=== PATIENT | female | born 1985 | race Two or more races ===

== ENCOUNTER 2024-08-06 07:40 | Inpatient (IN) | payer OTHER ==
[2024-08-06 08:26] LABS: BASO % 0.2 % (0-2.0); EOS % 0.6 % (0-4.5); HEMATOCRIT 37.4 % (32.4-45.2); HEMOGLOBIN 12.9 GM/dL (10.7-15.3); LYMPH % 24.5 % (8-40); MCH 31.5 pg (25.7-33.7); MCHC 34.6 g/dl (32.0-36.0); MEAN PLT VOLUME 8.5 fl (7.5-11.1); MONO % 7.3 % (3.8-10.2); NEUT % 67.4 % (42.8-82.8); PLATELET COUNT 189 10^3/uL (134-434); RBC 4.11 M/mm3 (3.60-5.2); RDW 13.6 % (11.6-15.6); URINE APPEARANCE CLEAR; URINE BILIRUBIN NEGATIVE (NEGATIVE); URINE COLOR YELLOW; URINE GLUCOSE (UA) NEGATIVE (NEGATIVE); URINE KETONE NEGATIVE (NEGATIVE); URINE LEUK ESTERASE NEGATIVE (NEGATIVE); URINE NITRITE NEGATIVE (NEGATIVE); URINE PROTEIN NEGATIVE (NEGATIVE); URINE UROBILINOGEN 0.2 mg/dL (0.2-1.0); WHITE BLOOD COUNT 7.3 K/mm3 (4.0-10.0)
[2024-08-06] MEDS: ELECTROLYTE-148 SOLN 500 ML IV SCH ×2 (08:45→09:15)
[2024-08-06] MEDS ORDERED: morphine SULFATE/PF 1 MG/2 ML (2cc Syringe - QUVA) ONE (08:46)
[2024-08-06] MEDS ORDERED: ceFAZolin SODIUM 1 GM VIAL ONE (08:46)
[2024-08-06] MEDS ORDERED: ONDANSETRON 4 MG/2 ML VIAL ONE ×2 (08:46→12:33)
[2024-08-06 08:51] LABS: CHLORIDE 106 mmol/L (98-107); POTASSIUM 4.2 mmol/L (3.5-5.1); SODIUM 136 mmol/L (136-145)
[2024-08-06 08:55] LABS: ALBUMIN 2.8 g/dl (3.4-5.0); ANION GAP 7 mmol/L (4-13); CALCIUM 9.4 mg/dL (8.5-10.1); CO2 23 mmol/L (21-32)
[2024-08-06 08:56] LABS: BLOOD UREA NITROGEN 16.4 mg/dL (7-18); GLUCOSE,RANDOM 90 mg/dL (74-106)
[2024-08-06 08:58] LABS: SGPT/ALT 62 U/L (13-61)
[2024-08-06 08:59] LABS: CREATININE 0.7 mg/dL (0.55-1.3); SGOT/AST 32 U/L (15-37)
[2024-08-06 09:00] LABS: BILIRUBIN,TOTAL 0.5 mg/dL (0.2-1); TOT PROT 6.8 g/dl (6.4-8.2)
[2024-08-06] MEDS: CITRIC ACID/SODIUM CITRATE 30 ML UNIT-DOSE CUP PO ONE (09:00)
[2024-08-06 09:01] LABS: ALK PHOS 187 U/L (45-117)
[2024-08-06 09:22] VITALS: BMI 28.4
[2024-08-06] MEDS ORDERED: LIGASURE IMPACT TP ONE (10:32)
[2024-08-06] MEDS ORDERED: OXYTOCIN 10 UNITS/ML VIAL ONE ×2 (11:35→11:38)
[2024-08-06] MEDS ORDERED: METHYLERGONOVINE MALEATE 0.2 MG/1 ML AMP IM PRN (14:07)
[2024-08-06] MEDS: OXYTOCIN 20 UNITS in 0.9% NS 20 UNIT/1,000 ML INFUS.BAG IV SCH (14:25)
[2024-08-06] MEDS: IBUPROFEN 600 MG TABLET (FP) PO PRN (20:15)
[2024-08-06] MEDS: SIMETHICONE 80 MG TAB.CHEW (FP) PO PRN (20:15)
[2024-08-07] MEDS ORDERED: oxyCODONE HCL 5 MG TABLET PO PRN ×2 (02:09)
[2024-08-07 06:57] LABS: BASO % 0.2 % (0-2.0); EOS % 0.4 % (0-4.5); HEMATOCRIT 30.7 % (32.4-45.2); HEMOGLOBIN 10.3 GM/dL (10.7-15.3); LYMPH % 15.6 % (8-40); MCH 30.8 pg (25.7-33.7); MCHC 33.6 g/dl (32.0-36.0); MEAN CELL VOLUME 91.8 fl (80-96); MEAN PLT VOLUME 9.2 fl (7.5-11.1); MONO % 6.6 % (3.8-10.2); NEUT % 77.2 % (42.8-82.8); PLATELET COUNT 158 10^3/uL (134-434); RBC 3.35 M/mm3 (3.60-5.2); RDW 13.7 % (11.6-15.6); WHITE BLOOD COUNT 11.6 K/mm3 (4.0-10.0)
[2024-08-07] MEDS: PRENATAL VITAMINS W/ FOLIC ACID TABLET (FP) PO SCH (11:11)
[2024-08-07] MEDS ORDERED: BISACODYL 10 MG SUPP.RECT RC PRN (14:09)
[2024-08-08] MEDS: ACETAMINOPHEN 325 MG TABLET (FP) PO PRN (17:43)
[2024-08-08 23:52] VITALS: RESP 18
[2024-08-09 07:13] LABS: BASO % 0.2 % (0-2.0); EOS % 1.2 % (0-4.5); HEMATOCRIT 29.9 % (32.4-45.2); HEMOGLOBIN 10.3 GM/dL (10.7-15.3); LYMPH % 20.8 % (8-40); MCH 31.4 pg (25.7-33.7); MCHC 34.4 g/dl (32.0-36.0); MEAN CELL VOLUME 91.3 fl (80-96); MEAN PLT VOLUME 8.7 fl (7.5-11.1); MONO % 5.3 % (3.8-10.2); NEUT % 72.5 % (42.8-82.8); PLATELET COUNT 201 10^3/uL (134-434); RBC 3.28 M/mm3 (3.60-5.2); RDW 13.5 % (11.6-15.6); WHITE BLOOD COUNT 10.8 K/mm3 (4.0-10.0)
[2024-08-09 10:36] VITALS: BP 103/57; PULSE 74; TEMP 98.4
== END 2024-08-09 15:15 | disposition home or self-care (01) | DRG 540 ==
LOC: JLAB 07:40 → JLDR 08:00 → J3W 15:15
PROVIDERS: ADMIT Obstetrics & Gynecology Obstetrics; ATTEND Obstetrics & Gynecology Obstetrics
PROC: 10D00Z1 Extraction of Products of Conception, Low, Open Approach (ICD-10-PCS; principal; 2024-08-06)
PROC: 0UB70ZZ Excision of Bilateral Fallopian Tubes, Open Approach (ICD-10-PCS; 2024-08-06)
DX: O34.219 Maternal care for unspecified type scar from previous cesarean delivery (principal); Z3A.39 39 weeks gestation of pregnancy; Z37.0 Single live birth; Z30.2 Encounter for sterilization
CPT/HCPCS: 36415; 59409; 80053; 81003; 85025; 86780; 86850; 86900; 86901; 88305-TC; 88307-TC; 94010